=== PATIENT | female | born 1950 | race Caucasian/White ===

== ENCOUNTER 2023-03-17 05:31 | Inpatient (IN) | payer OTHER ==
[2023-03-17 06:25] LABS: ARTERIAL BLOOD GAS BASE EXCESS 9.9 mmol/L (-2-2); ARTERIAL BLOOD GAS PO2 94.7 mmHg (80-100); ARTERIAL BLOOD GAS pH 7.401 (7.350-7.450)
[2023-03-17 06:28] LABS: VENT MODE V-A/C; VENT RATE 20
[2023-03-17 07:58] LABS: EPI CELLS 3 /uL (0-25.1); HYALINE CASTS 6 /uL (0-3.1); URINE APPEARANCE CLOUDY; URINE BACTERIA 29 /uL (0-1359); URINE BILIRUBIN NEGATIVE (NEGATIVE); URINE COLOR DK YELLOW; URINE GLUCOSE (UA) NEGATIVE (NEGATIVE); URINE KETONE NEGATIVE (NEGATIVE); URINE LEUK ESTERASE 2+ (NEGATIVE); URINE NITRITE NEGATIVE (NEGATIVE); URINE PROTEIN 2+ (NEGATIVE); URINE WBC 813 /uL (0-25.8)
[2023-03-17 08:04] LABS: BASO % 0.1 % (0-2.0); HEMATOCRIT 26.2 % (32.4-45.2); HEMOGLOBIN 8.3 GM/dL (10.7-15.3); INR 1.18 (0.83-1.09); LYMPH % 4.9 % (8-40); MCH 30.3 pg (25.7-33.7); MCHC 31.5 g/dl (32.0-36.0); MEAN CELL VOLUME 96.2 fl (80-96); MEAN PLT VOLUME 9.8 fl (7.5-11.1); MONO % 8.8 % (3.8-10.2); NEUT % 86.2 % (42.8-82.8); PLATELET COUNT 426 10^3/uL (134-434); PROTHROMBIN TIME (PATIENT) 13.7 SEC (9.7-13.0); RBC 2.73 M/mm3 (3.60-5.2); RDW 18.8 % (11.6-15.6); WHITE BLOOD COUNT 10.7 K/mm3 (4.0-10.0)
[2023-03-17 08:07] LABS: ACTIVATED PTT 27.7 SECONDS (25.2-36.5)
[2023-03-17 08:19] LABS: POTASSIUM 4.4 mmol/L (3.5-5.1)
[2023-03-17 08:21] LABS: BLOOD UREA NITROGEN 42.2 mg/dL (7-18); CALCIUM 8.1 mg/dL (8.5-10.1)
[2023-03-17 08:22] LABS: MAGNESIUM 1.8 mg/dL (1.8-2.4)
[2023-03-17 08:24] LABS: CREATININE 0.6 mg/dL (0.55-1.3)
[2023-03-17 08:25] LABS: PHOSPHOROUS 2.4 mg/dL (2.5-4.9)
[2023-03-17 08:26] LABS: TOT PROT 7.2 g/dl (6.4-8.2)
[2023-03-17 08:31] LABS: BILIRUBIN,TOTAL 0.4 mg/dL (0.2-1)
[2023-03-17 08:36] LABS: URINE CRYSTALS NEGATIVE /hpf; URINE RBC 7100.9 /uL (0-23.9); YEAST NEGATIVE (NEGATIVE)
[2023-03-17 08:42] LABS: ALBUMIN 1.6 g/dl (3.4-5.0); N-TERMINAL BNP 57428.8 pg/ml (5-125)
[2023-03-17] MEDS ORDERED: FUROSEMIDE 100 MG/10 ML INJECTABLE VIAL IVPB ONE (08:48)
[2023-03-17] MEDS ORDERED: FUROSEMIDE 40 MG/4 ML INJECTABLE VIAL ONE ×2 (09:23→14:35)
[2023-03-17] MEDS ORDERED: ACETAMINOPHEN 1000 MG/100 ML BAG IVPB ONE (13:27)
[2023-03-17] MEDS ORDERED: ACETAMINOPHEN INJECTION 100 ML IVPB ONE (13:40)
[2023-03-17] MEDS: FUROSEMIDE 40 MG/4 ML INJECTABLE VIAL IVPUSH SCH (14:34)
[2023-03-17] MEDS ORDERED: ABATACEPT SQ SCH (17:30)
[2023-03-17] MEDS ORDERED: [UNRECOGNIZED DRUG - OTHER] SQ SCH (17:30)
[2023-03-17] MEDS ORDERED: METOPROLOL TARTRATE 25 MG TABLET (FP) ONE (21:38)
[2023-03-17] MEDS ORDERED: GABAPENTIN 300 MG CAPSULE ONE (21:39)
[2023-03-17] MEDS ORDERED: ASPIRIN 325 MG ENTERIC COATED TABLET (FP) ONE (21:39)
[2023-03-17] MEDS ORDERED: ENOXAPARIN NA (PORCINE) 40 MG/0.4 ML DISP.SYRIN SQ SCH (22:00)
[2023-03-17] MEDS ORDERED: GABAPENTIN 300 MG CAPSULE PO SCH (22:00)
[2023-03-17] MEDS ORDERED: ASPIRIN 325 MG ENTERIC COATED TABLET (FP) PO SCH (22:00)
[2023-03-17] MEDS ORDERED: ASPIRIN 325 MG TABLET GT ONE (22:18)
[2023-03-17] MEDS ORDERED: ASPIRIN 325 MG TABLET ONE (22:32)
[2023-03-17] MEDS: METOPROLOL TARTRATE 25 MG TABLET (FP) NGT SCH (22:54)
[2023-03-18] MEDS: FUROSEMIDE 40 MG/4 ML INJECTABLE VIAL IVPUSH SCH ×2 (05:54→13:13)
[2023-03-18 07:49] LABS: EOS % 0.1 % (0-4.5); HEMATOCRIT 26.3 % (32.4-45.2); HEMOGLOBIN 8.2 GM/dL (10.7-15.3); LYMPH % 7.5 % (8-40); MCHC 31.3 g/dl (32.0-36.0); MEAN CELL VOLUME 95.9 fl (80-96); MEAN PLT VOLUME 9.9 fl (7.5-11.1); MONO % 7.7 % (3.8-10.2); NEUT % 84.7 % (42.8-82.8); PLATELET COUNT 455 10^3/uL (134-434); RBC 2.74 M/mm3 (3.60-5.2); WHITE BLOOD COUNT 12.6 K/mm3 (4.0-10.0)
[2023-03-18 07:58] LABS: POTASSIUM 4.1 mmol/L (3.5-5.1)
[2023-03-18 08:01] LABS: CALCIUM 7.8 mg/dL (8.5-10.1)
[2023-03-18 08:02] LABS: ALBUMIN 1.6 g/dl (3.4-5.0); BLOOD UREA NITROGEN 39.5 mg/dL (7-18)
[2023-03-18 08:05] LABS: CREATININE 0.5 mg/dL (0.55-1.3)
[2023-03-18 08:07] LABS: BILIRUBIN,TOTAL 0.6 mg/dL (0.2-1); TOT PROT 6.8 g/dl (6.4-8.2)
[2023-03-18] MEDS ORDERED: PANTOPRAZOLE 40 MG TABLET PO SCH (10:00)
[2023-03-18] MEDS: METOPROLOL TARTRATE 25 MG TABLET (FP) NGT SCH ×2 (10:06→21:15)
[2023-03-18] MEDS: ASPIRIN 325 MG TABLET NGT SCH (10:07)
[2023-03-18] MEDS: AMIODARONE HCL 200 MG TABLET NGT SCH (10:07)
[2023-03-18] MEDS: FAMOTIDINE 20 MG TABLET NGT SCH ×2 (10:07→21:15)
[2023-03-18] MEDS: GABAPENTIN 250 MG/5 ML ORAL SOLUTION, 470 ML BOTTLE NGT SCH ×2 (10:08→21:52)
[2023-03-18] MEDS: ENOXAPARIN NA (PORCINE) 40 MG/0.4 ML DISP.SYRIN SQ SCH (10:08)
[2023-03-18] MEDS ORDERED: PNEUMOC 20-VAL CONJ-DIP CRM/PF 0.5 ML SYRINGE IM ONE (10:45)
[2023-03-18] MEDS ORDERED: ACETAMINOPHEN 325 MG TABLET (FP) PO PRN (16:27)
[2023-03-18] MEDS: COLLAGENASE CLOSTRIDIUM HIST. 30 GRAMS TUBE TP SCH (17:19)
[2023-03-18] MEDS: MELATONIN 1 MG TABLET NGT SCH (21:15)
[2023-03-18] MEDS: ASCORBIC ACID 500 MG/5 ML UNIT DOSE CUP GT SCH (21:18)
[2023-03-19] MEDS: FUROSEMIDE 40 MG/4 ML INJECTABLE VIAL IVPUSH SCH ×2 (06:21→14:17)
[2023-03-19] MEDS: ENOXAPARIN NA (PORCINE) 40 MG/0.4 ML DISP.SYRIN SQ SCH (09:41)
[2023-03-19] MEDS: ASCORBIC ACID 500 MG/5 ML UNIT DOSE CUP GT SCH ×2 (09:42→21:11)
[2023-03-19] MEDS: GABAPENTIN 250 MG/5 ML ORAL SOLUTION, 470 ML BOTTLE NGT SCH ×2 (09:43→21:12)
[2023-03-19] MEDS: FAMOTIDINE 20 MG TABLET NGT SCH (09:43)
[2023-03-19] MEDS: ASPIRIN 325 MG TABLET NGT SCH (09:43)
[2023-03-19] MEDS: AMIODARONE HCL 200 MG TABLET NGT SCH (09:44)
[2023-03-19] MEDS: METOPROLOL TARTRATE 25 MG TABLET (FP) NGT SCH ×2 (09:44→23:04)
[2023-03-19] MEDS: COLLAGENASE CLOSTRIDIUM HIST. 30 GRAMS TUBE TP SCH (09:44)
[2023-03-19] MEDS: ALBUTEROL SO4 2.5/IPRATROPIUM 0.5 INH SOL 3 ML VIAL.NEB. NEB SCH ×3 (11:45→19:44)
[2023-03-19] MEDS: ALBUMIN HUMAN 25% 100 ML VIAL IV SCH ×2 (12:13→14:07)
[2023-03-19] MEDS ORDERED: ACETAMINOPHEN 650 MG/20.3 ML ORAL SOLUTION (CUPS) GT PRN (13:11)
[2023-03-19 14:24] LABS: ARTERIAL BLD GAS O2 SATURATION 98.6 % (95-98); ARTERIAL BLOOD GAS pH 7.413 (7.350-7.450)
[2023-03-19 14:25] LABS: ALLENS TEST POSITIVE
[2023-03-19 14:26] LABS: VENT MODE A/C; VENT RATE 14
[2023-03-19] MEDS: AMINO ACIDS/PROTEIN HYDROLYS 30 ML LIQUID.PKT GT SCH (16:45)
[2023-03-19] MEDS: VANCOMYCIN 250 MG/5 ML ORAL SOLUTION PO SCH ×2 (17:42)
[2023-03-19 18:11] LABS: BASO % 0.2 % (0-2.0); HEMATOCRIT 26.5 % (32.4-45.2); HEMOGLOBIN 8.1 GM/dL (10.7-15.3); LYMPH % 2.6 % (8-40); MCH 30.2 pg (25.7-33.7); MCHC 30.5 g/dl (32.0-36.0); MEAN CELL VOLUME 98.9 fl (80-96); MEAN PLT VOLUME 10.4 fl (7.5-11.1); MONO % 5.8 % (3.8-10.2); NEUT % 91.4 % (42.8-82.8); PLATELET COUNT 376 10^3/uL (134-434); RBC 2.68 M/mm3 (3.60-5.2); RDW 19.2 % (11.6-15.6); WHITE BLOOD COUNT 18.9 K/mm3 (4.0-10.0)
[2023-03-19 18:28] LABS: CHLORIDE 113 mmol/L (98-107); SODIUM 157 mmol/L (136-145)
[2023-03-19 18:30] LABS: CALCIUM 7.4 mg/dL (8.5-10.1)
[2023-03-19 18:31] LABS: ALBUMIN 1.5 g/dl (3.4-5.0); BLOOD UREA NITROGEN 33.4 mg/dL (7-18); CO2 40 mmol/L (21-32); GLUCOSE,RANDOM 145 mg/dL (74-106); MAGNESIUM 1.4 mg/dL (1.8-2.4)
[2023-03-19 18:33] LABS: SGPT/ALT 20 U/L (13-61)
[2023-03-19 18:34] LABS: CREATININE 0.5 mg/dL (0.55-1.3); PHOSPHOROUS 3.5 mg/dL (2.5-4.9); SGOT/AST 17 U/L (15-37)
[2023-03-19 18:35] LABS: BILIRUBIN,TOTAL 0.4 mg/dL (0.2-1)
[2023-03-19 18:55] LABS: ALK PHOS 255 U/L (45-117); ANION GAP 3 MMOL/L (8-16); POTASSIUM 2.9 mmol/L (3.5-5.1)
[2023-03-19] MEDS ORDERED: MAGNESIUM 2GM/50ML STERILE WATER IVPB IVPB ONE (19:31)
[2023-03-19] MEDS: KCL 10 MEQ IVPB 10 MEQ/100 ML INFUS.BAG IVPB SCH ×3 (20:20→23:03)
[2023-03-19] MEDS ORDERED: FAMOTIDINE 40 MG/5 ML ORAL SUSPENSION NGT SCH (22:00)
[2023-03-19] MEDS: MELATONIN 1 MG TABLET NGT SCH (23:04)
[2023-03-20] MEDS: VANCOMYCIN 250 MG/5 ML ORAL SOLUTION PO SCH ×5 (00:05→22:59)
[2023-03-20] MEDS ORDERED: LACTATED RINGERS SOLUTION 1000 ML INFUS.BAG IV ONE ×2 (00:38→06:34)
[2023-03-20] MEDS ORDERED: VANCOMYCIN 1 GM PREMIX - 1 GM/200 ML BAG IVPB ONE (03:45)
[2023-03-20] MEDS ORDERED: PIPERACILLIN/TAZOB 4.5 GM 4.5 GM in DEXTROSE 5%-WATER 100 ML IVPB ONE (03:45)
[2023-03-20] MEDS: FUROSEMIDE 40 MG/4 ML INJECTABLE VIAL IVPUSH SCH (06:40)
[2023-03-20 06:48] LABS: HEMATOCRIT 27.6 % (32.4-45.2); MCH 29.5 pg (25.7-33.7); MCHC 29.2 g/dl (32.0-36.0); MEAN CELL VOLUME 101.3 fl (80-96); MEAN PLT VOLUME 10.7 fl (7.5-11.1); PLATELET COUNT 313 10^3/uL (134-434); RBC 2.72 M/mm3 (3.60-5.2); RDW 20.5 % (11.6-15.6); WHITE BLOOD COUNT 20.9 K/mm3 (4.0-10.0)
[2023-03-20 07:07] LABS: POTASSIUM 3.2 mmol/L (3.5-5.1)
[2023-03-20 07:10] LABS: ALBUMIN 1.4 g/dl (3.4-5.0); BLOOD UREA NITROGEN 34.6 mg/dL (7-18); CALCIUM 7.5 mg/dL (8.5-10.1); MAGNESIUM 1.8 mg/dL (1.8-2.4)
[2023-03-20 07:13] LABS: CREATININE 0.6 mg/dL (0.55-1.3); PHOSPHOROUS 3.1 mg/dL (2.5-4.9)
[2023-03-20 07:15] LABS: BILIRUBIN,TOTAL 0.4 mg/dL (0.2-1)
[2023-03-20] MEDS ORDERED: NOREPINEPHRINE BITARTRATE 4,000 MCG in DEXTROSE 5%-WATER - 496 ML IV SCH (07:45)
[2023-03-20] MEDS ORDERED: ACETAMINOPHEN 650 MG/20.3 ML ORAL SOLUTION (CUPS) GT PRN (07:57)
[2023-03-20] MEDS: ALBUTEROL SO4 2.5/IPRATROPIUM 0.5 INH SOL 3 ML VIAL.NEB. NEB SCH ×4 (08:28→20:27)
[2023-03-20] MEDS ORDERED: ALBUMIN HUMAN 25% 100 ML VIAL IV ONE (08:30)
[2023-03-20] MEDS: NOREPINEPHRINE BITARTRATE/D5W 8 MG/250 ML BAG IVPB SCH (08:36)
[2023-03-20 09:01] LABS: ANISOCYTOSIS 2+; MACROCYTOSIS 2+
[2023-03-20] MEDS: AMINO ACIDS/PROTEIN HYDROLYS 30 ML LIQUID.PKT GT SCH ×2 (09:06→17:12)
[2023-03-20] MEDS: KCL 10 MEQ IVPB 10 MEQ/100 ML INFUS.BAG IVPB SCH ×5 (09:06→15:56)
[2023-03-20] MEDS: ASPIRIN 325 MG TABLET NGT SCH (09:07)
[2023-03-20] MEDS: ENOXAPARIN NA (PORCINE) 40 MG/0.4 ML DISP.SYRIN SQ SCH (09:07)
[2023-03-20] MEDS: ASCORBIC ACID 500 MG/5 ML UNIT DOSE CUP GT SCH ×2 (09:07→21:40)
[2023-03-20] MEDS: AMIODARONE HCL 200 MG TABLET NGT SCH (09:07)
[2023-03-20] MEDS: GABAPENTIN 250 MG/5 ML ORAL SOLUTION, 470 ML BOTTLE NGT SCH ×2 (09:18→21:40)
[2023-03-20] MEDS ORDERED: CEFEPIME HCL 2 GM VIAL (RESTRICTED TO ID) IVPB SCH (10:00)
[2023-03-20] MEDS ORDERED: CEFEPIME 2 GM in DEXTROSE 5%-WATER 100 ML IVPB SCH (10:00)
[2023-03-20] MEDS: CLOTRIMAZOLE 1% CREAM TP SCH ×2 (12:15→21:40)
[2023-03-20] MEDS ORDERED: POTASSIUM CHLORIDE ORAL LIQUID 20 MEQ/15 ML PO ONE (13:30)
[2023-03-20] MEDS ORDERED: FUROSEMIDE 40 MG/4 ML INJECTABLE VIAL IVPUSH SCH (14:00)
[2023-03-20] MEDS ORDERED: VANCOMYCIN 1,000 MG in DEXTROSE 5%-WATER - 250 ML IVPB SCH (14:00)
[2023-03-20] MEDS: PIPERACILLIN/TAZOB 3.375 GM 3.375 GM in DEXTROSE 5%-WATER - 50 ML IVPB SCH ×2 (14:06→21:29)
[2023-03-20] MEDS: VANCOMYCIN/WATER FOR INJ (PEG) 1,000 MG/200 ML BAG IVPB SCH (17:13)
[2023-03-20 18:36] LABS: ARTERIAL BLD GAS O2 SATURATION 75.6 % (95-98); ARTERIAL BLOOD GAS BASE EXCESS 7.6 mmol/L (-2-2); ARTERIAL BLOOD GAS PO2 52.1 mmHg (80-100)
[2023-03-20 18:47] LABS: VENT MODE A/C; VENT RATE 14
[2023-03-20] MEDS ORDERED: FUROSEMIDE INJECTION 100 MG in SODIUM CHLORIDE 90 ML IVPB SCH (20:30)
[2023-03-20 20:43] LABS: HEMATOCRIT 23.8 % (32.4-45.2); HEMOGLOBIN 7.1 GM/dL (10.7-15.3); MCH 30.5 pg (25.7-33.7); MEAN CELL VOLUME 101.7 fl (80-96); MEAN PLT VOLUME 10.5 fl (7.5-11.1); PLATELET COUNT 299 10^3/uL (134-434); RBC 2.34 M/mm3 (3.60-5.2); RDW 21.1 % (11.6-15.6)
[2023-03-20] MEDS: MELATONIN 1 MG TABLET NGT SCH (21:30)
[2023-03-21] MEDS: NOREPINEPHRINE BITARTRATE/D5W 8 MG/250 ML BAG IVPB SCH ×2 (02:00→14:11)
[2023-03-21] MEDS: PIPERACILLIN/TAZOB 3.375 GM 3.375 GM in DEXTROSE 5%-WATER - 50 ML IVPB SCH ×4 (03:10→21:55)
[2023-03-21] MEDS: VANCOMYCIN/WATER FOR INJ (PEG) 1,000 MG/200 ML BAG IVPB SCH (04:14)
[2023-03-21] MEDS ORDERED: DOPAMINE 400 MG/D5W - 400,000 MCG/250 ML INFUS.BAG IVPB SCH (06:15)
[2023-03-21] MEDS: VANCOMYCIN 250 MG/5 ML ORAL SOLUTION PO SCH ×3 (06:26→18:55)
[2023-03-21 06:36] LABS: ARTERIAL BLD GAS O2 SATURATION 95.7 % (95-98); ARTERIAL BLOOD GAS BASE EXCESS 5.7 mmol/L (-2-2); ARTERIAL BLOOD GAS PO2 100.2 mmHg (80-100)
[2023-03-21 07:08] LABS: HEMATOCRIT 22.5 % (32.4-45.2); MCH 30.2 pg (25.7-33.7); MCHC 29.6 g/dl (32.0-36.0); MEAN CELL VOLUME 102.2 fl (80-96); MEAN PLT VOLUME 10.4 fl (7.5-11.1); PLATELET COUNT 269 10^3/uL (134-434); RDW 20.7 % (11.6-15.6); WHITE BLOOD COUNT 22.4 K/mm3 (4.0-10.0)
[2023-03-21 07:17] LABS: HEMOGLOBIN 6.7 GM/dL (10.7-15.3)
[2023-03-21 07:21] LABS: POTASSIUM 3.6 mmol/L (3.5-5.1)
[2023-03-21 07:34] LABS: ALBUMIN 1.6 g/dl (3.4-5.0); BILIRUBIN,TOTAL 0.6 mg/dL (0.2-1); BLOOD UREA NITROGEN 42.1 mg/dL (7-18); CALCIUM 7.5 mg/dL (8.5-10.1); CREATININE 0.9 mg/dL (0.55-1.3); MAGNESIUM 1.6 mg/dL (1.8-2.4); PHOSPHOROUS 3.2 mg/dL (2.5-4.9); TOT PROT 5.6 g/dl (6.4-8.2)
[2023-03-21 07:55] LABS: ARTERIAL BLOOD GAS pH 7.199 (7.350-7.450)
[2023-03-21] MEDS: ALBUTEROL SO4 2.5/IPRATROPIUM 0.5 INH SOL 3 ML VIAL.NEB. NEB SCH ×4 (08:21→20:25)
[2023-03-21] MEDS ORDERED: POTASSIUM CHLORIDE ORAL LIQUID 20 MEQ/15 ML PO ONE (08:45)
[2023-03-21 09:06] LABS: ANISOCYTOSIS 2+; MACROCYTOSIS 1+
[2023-03-21] MEDS: ENOXAPARIN NA (PORCINE) 40 MG/0.4 ML DISP.SYRIN SQ SCH (09:20)
[2023-03-21] MEDS: PANTOPRAZOLE SODIUM 40 MG VIAL IVPUSH SCH (09:20)
[2023-03-21] MEDS: AMINO ACIDS/PROTEIN HYDROLYS 30 ML LIQUID.PKT GT SCH ×2 (09:20→18:55)
[2023-03-21] MEDS: ASPIRIN 325 MG TABLET NGT SCH (09:21)
[2023-03-21] MEDS: ASCORBIC ACID 500 MG/5 ML UNIT DOSE CUP GT SCH ×2 (09:21→21:59)
[2023-03-21] MEDS: AMIODARONE HCL 200 MG TABLET NGT SCH (09:21)
[2023-03-21] MEDS: GABAPENTIN 250 MG/5 ML ORAL SOLUTION, 470 ML BOTTLE NGT SCH ×2 (09:52→21:59)
[2023-03-21] MEDS ORDERED: MAGNESIUM 2GM/50ML STERILE WATER IVPB IVPB ONE (10:00)
[2023-03-21] MEDS ORDERED: CALCIUM GLUCONATE IN NACL 1 GM/50 ML BAG IVPB ONE ×2 (11:30→13:30)
[2023-03-21 13:42] LABS: ARTERIAL BLD GAS O2 SATURATION 97.9 % (95-98); ARTERIAL BLOOD GAS BASE EXCESS 3.1 mmol/L (-2-2); ARTERIAL BLOOD GAS PO2 131.5 mmHg (80-100); ARTERIAL BLOOD GAS pH 7.229 (7.350-7.450)
[2023-03-21 13:48] LABS: VENT MODE A/C
[2023-03-21 13:49] LABS: VENT RATE 26
[2023-03-21] MEDS: CLOTRIMAZOLE 1% CREAM TP SCH ×2 (14:09→22:19)
[2023-03-21] MEDS ORDERED: PIPERACILLIN/TAZOBACTAM 3.375 GM VIAL IVPB ONE (21:28)
[2023-03-21] MEDS ORDERED: PIPERACILLIN/TAZOB 3.375 GM 3.375 GM in DEXTROSE 5%-WATER - 50 ML IVPB SCH (21:30)
[2023-03-21] MEDS: MELATONIN 1 MG TABLET NGT SCH (22:20)
[2023-03-22] MEDS: VANCOMYCIN 250 MG/5 ML ORAL SOLUTION PO SCH ×5 (00:53→23:32)
[2023-03-22] MEDS: NOREPINEPHRINE BITARTRATE/D5W 8 MG/250 ML BAG IVPB SCH ×4 (01:23→23:32)
[2023-03-22] MEDS: PIPERACILLIN/TAZOB 3.375 GM 3.375 GM in DEXTROSE 5%-WATER - 50 ML IVPB SCH ×4 (04:00→21:04)
[2023-03-22] MEDS ORDERED: PIPERACILLIN/TAZOBACTAM 3.375 GM VIAL IVPB ONE (04:26)
[2023-03-22 07:04] LABS: HEMATOCRIT 28.7 % (32.4-45.2); HEMOGLOBIN 8.7 GM/dL (10.7-15.3); MCH 29.6 pg (25.7-33.7); MCHC 30.3 g/dl (32.0-36.0); MEAN CELL VOLUME 97.8 fl (80-96); MEAN PLT VOLUME 10.8 fl (7.5-11.1); PLATELET COUNT 212 10^3/uL (134-434); RBC 2.93 M/mm3 (3.60-5.2); RDW 21.1 % (11.6-15.6); WHITE BLOOD COUNT 19.8 K/mm3 (4.0-10.0)
[2023-03-22 07:27] LABS: POTASSIUM 3.7 mmol/L (3.5-5.1)
[2023-03-22 07:30] LABS: ALBUMIN 1.4 g/dl (3.4-5.0); BLOOD UREA NITROGEN 54.4 mg/dL (7-18); CALCIUM 7.8 mg/dL (8.5-10.1); MAGNESIUM 2.2 mg/dL (1.8-2.4)
[2023-03-22 07:33] LABS: CREATININE 1.4 mg/dL (0.55-1.3); PHOSPHOROUS 4.1 mg/dL (2.5-4.9)
[2023-03-22 07:35] LABS: BILIRUBIN,TOTAL 0.6 mg/dL (0.2-1); TOT PROT 5.7 g/dl (6.4-8.2)
[2023-03-22] MEDS: ALBUTEROL SO4 2.5/IPRATROPIUM 0.5 INH SOL 3 ML VIAL.NEB. NEB SCH ×4 (08:15→20:18)
[2023-03-22] MEDS: AMINO ACIDS/PROTEIN HYDROLYS 30 ML LIQUID.PKT GT SCH ×2 (08:26→17:00)
[2023-03-22] MEDS: ENOXAPARIN NA (PORCINE) 40 MG/0.4 ML DISP.SYRIN SQ SCH (09:42)
[2023-03-22] MEDS: ASCORBIC ACID 500 MG/5 ML UNIT DOSE CUP GT SCH ×2 (09:43→21:04)
[2023-03-22] MEDS: AMIODARONE HCL 200 MG TABLET NGT SCH (09:43)
[2023-03-22] MEDS: ASPIRIN 325 MG TABLET NGT SCH (09:43)
[2023-03-22] MEDS: PANTOPRAZOLE SODIUM 40 MG VIAL IVPUSH SCH (09:43)
[2023-03-22] MEDS: GABAPENTIN 250 MG/5 ML ORAL SOLUTION, 470 ML BOTTLE NGT SCH ×2 (09:43→21:04)
[2023-03-22] MEDS: CLOTRIMAZOLE 1% CREAM TP SCH ×2 (09:45→21:05)
[2023-03-22 09:52] LABS: ANISOCYTOSIS 2+; MACROCYTOSIS 0; OVALOCYTE 2+
[2023-03-22] MEDS ORDERED: VANCOMYCIN/WATER FOR INJ (PEG) 1,000 MG/200 ML BAG IVPB SCH (10:00)
[2023-03-22 11:53] LABS: ARTERIAL BLD GAS O2 SATURATION 91.9 % (95-98); ARTERIAL BLOOD GAS BASE EXCESS 2.3 mmol/L (-2-2); ARTERIAL BLOOD GAS PO2 88.6 mmHg (80-100)
[2023-03-22 11:54] LABS: VENT MODE A/C
[2023-03-22 11:55] LABS: VENT RATE 26
[2023-03-22 12:00] LABS: ARTERIAL BLOOD GAS pH 7.089 (7.350-7.450)
[2023-03-22 16:41] VITALS: BMI 22.1
[2023-03-22 17:20] LABS: ARTERIAL BLD GAS O2 SATURATION 98.5 % (95-98); ARTERIAL BLOOD GAS BASE EXCESS 2.9 mmol/L (-2-2); ARTERIAL BLOOD GAS PO2 137.7 mmHg (80-100); ARTERIAL BLOOD GAS pH 7.336 (7.350-7.450)
[2023-03-22 17:31] LABS: ALLENS TEST POSITIVE; VENT MODE V-AC; VENT RATE 18
[2023-03-22] MEDS: MELATONIN 1 MG TABLET NGT SCH (21:05)
[2023-03-23] MEDS: PIPERACILLIN/TAZOB 3.375 GM 3.375 GM in DEXTROSE 5%-WATER - 50 ML IVPB SCH ×2 (02:45→12:44)
[2023-03-23 07:17] LABS: HEMOGLOBIN 7.7 GM/dL (10.7-15.3); MCH 29.3 pg (25.7-33.7); MCHC 30.8 g/dl (32.0-36.0); MEAN CELL VOLUME 95.1 fl (80-96); MEAN PLT VOLUME 11.2 fl (7.5-11.1); PLATELET COUNT 165 10^3/uL (134-434); RBC 2.63 M/mm3 (3.60-5.2); RDW 20.5 % (11.6-15.6); WHITE BLOOD COUNT 16.8 K/mm3 (4.0-10.0)
[2023-03-23 07:42] LABS: POTASSIUM 3.4 mmol/L (3.5-5.1)
[2023-03-23 07:44] LABS: ALBUMIN 1.3 g/dl (3.4-5.0); CALCIUM 7.6 mg/dL (8.5-10.1); MAGNESIUM 2.2 mg/dL (1.8-2.4)
[2023-03-23 07:47] LABS: PHOSPHOROUS 4.1 mg/dL (2.5-4.9)
[2023-03-23 07:48] LABS: CREATININE 1.8 mg/dL (0.55-1.3)
[2023-03-23 07:49] LABS: BILIRUBIN,TOTAL 0.5 mg/dL (0.2-1); TOT PROT 5.4 g/dl (6.4-8.2)
[2023-03-23] MEDS: ALBUTEROL SO4 2.5/IPRATROPIUM 0.5 INH SOL 3 ML VIAL.NEB. NEB SCH ×4 (08:14→20:09)
[2023-03-23 09:37] LABS: ANISOCYTOSIS 3+; MACROCYTOSIS 2+; TARGET CELLS 2+
[2023-03-23] MEDS: AMIODARONE HCL 200 MG TABLET NGT SCH (10:44)
[2023-03-23] MEDS: ASCORBIC ACID 500 MG/5 ML UNIT DOSE CUP GT SCH ×2 (10:44→21:24)
[2023-03-23] MEDS: PANTOPRAZOLE SODIUM 40 MG VIAL IVPUSH SCH (10:44)
[2023-03-23] MEDS: AMINO ACIDS/PROTEIN HYDROLYS 30 ML LIQUID.PKT GT SCH ×2 (10:44→19:10)
[2023-03-23] MEDS: PIPERACILLIN/TAZOB 2.25 GM 2.25 GM in DEXTROSE 5%-WATER - 50 ML IVPB SCH ×3 (10:44→21:24)
[2023-03-23] MEDS: ASPIRIN 325 MG TABLET NGT SCH (10:44)
[2023-03-23] MEDS: ENOXAPARIN NA (PORCINE) 40 MG/0.4 ML DISP.SYRIN SQ SCH (10:47)
[2023-03-23] MEDS: GABAPENTIN 250 MG/5 ML ORAL SOLUTION, 470 ML BOTTLE NGT SCH ×2 (10:52→21:24)
[2023-03-23] MEDS: NOREPINEPHRINE BITARTRATE/D5W 8 MG/250 ML BAG IVPB SCH (12:43)
[2023-03-23] MEDS: VANCOMYCIN 250 MG/5 ML ORAL SOLUTION PO SCH ×4 (12:44→23:15)
[2023-03-23] MEDS: CLOTRIMAZOLE 1% CREAM TP SCH ×2 (15:45→21:26)
[2023-03-23 21:09] LABS: ARTERIAL BLD GAS O2 SATURATION 98.6 % (95-98); ARTERIAL BLOOD GAS PO2 145.4 mmHg (80-100); ARTERIAL BLOOD GAS pH 7.298 (7.350-7.450)
[2023-03-23] MEDS: MELATONIN 1 MG TABLET NGT SCH (21:24)
[2023-03-24] MEDS: NOREPINEPHRINE BITARTRATE/D5W 8 MG/250 ML BAG IVPB SCH ×3 (01:20→23:04)
[2023-03-24] MEDS: PIPERACILLIN/TAZOB 2.25 GM 2.25 GM in DEXTROSE 5%-WATER - 50 ML IVPB SCH ×4 (02:52→20:15)
[2023-03-24] MEDS: VASOPRESSIN 40 UNITS/100 ML BAG IV SCH (02:53)
[2023-03-24] MEDS: VANCOMYCIN 250 MG/5 ML ORAL SOLUTION PO SCH ×4 (05:54→23:05)
[2023-03-24 06:38] LABS: ARTERIAL BLD GAS O2 SATURATION 78.6 % (95-98); ARTERIAL BLOOD GAS BASE EXCESS -1.6 mmol/L (-2-2); ARTERIAL BLOOD GAS PO2 53.7 mmHg (80-100)
[2023-03-24 06:43] LABS: ARTERIAL BLOOD GAS pH 7.189 (7.350-7.450)
[2023-03-24] MEDS: ALBUTEROL SO4 2.5/IPRATROPIUM 0.5 INH SOL 3 ML VIAL.NEB. NEB SCH ×4 (07:15→19:55)
[2023-03-24 07:45] LABS: HEMATOCRIT 19.3 % (32.4-45.2); MCH 29.6 pg (25.7-33.7); MCHC 30.9 g/dl (32.0-36.0); MEAN CELL VOLUME 95.6 fl (80-96); MEAN PLT VOLUME 11.2 fl (7.5-11.1); PLATELET COUNT 143 10^3/uL (134-434); RBC 2.02 M/mm3 (3.60-5.2); WHITE BLOOD COUNT 20.4 K/mm3 (4.0-10.0)
[2023-03-24 07:52] LABS: POTASSIUM 3.9 mmol/L (3.5-5.1)
[2023-03-24 07:57] LABS: ALBUMIN 1.2 g/dl (3.4-5.0); BLOOD UREA NITROGEN 78.3 mg/dL (7-18); CALCIUM 7.5 mg/dL (8.5-10.1); MAGNESIUM 2.1 mg/dL (1.8-2.4)
[2023-03-24 08:00] LABS: CREATININE 2.2 mg/dL (0.55-1.3); PHOSPHOROUS 4.6 mg/dL (2.5-4.9)
[2023-03-24 08:01] LABS: BILIRUBIN,TOTAL 0.8 mg/dL (0.2-1)
[2023-03-24 09:06] LABS: ANISOCYTOSIS 2+; MACROCYTOSIS 0; OVALOCYTE 1+; TARGET CELLS 1+
[2023-03-24] MEDS: GABAPENTIN 250 MG/5 ML ORAL SOLUTION, 470 ML BOTTLE NGT SCH (09:30)
[2023-03-24] MEDS: ASCORBIC ACID 500 MG/5 ML UNIT DOSE CUP GT SCH (09:30)
[2023-03-24] MEDS: AMIODARONE HCL 200 MG TABLET NGT SCH (09:31)
[2023-03-24] MEDS: PANTOPRAZOLE SODIUM 40 MG VIAL IVPUSH SCH (09:31)
[2023-03-24] MEDS: ASPIRIN 325 MG TABLET NGT SCH (09:31)
[2023-03-24] MEDS: AMINO ACIDS/PROTEIN HYDROLYS 30 ML LIQUID.PKT GT SCH (09:32)
[2023-03-24] MEDS ORDERED: ABATACEPT SQ SCH (10:00)
[2023-03-24] MEDS ORDERED: MORPHINE SULFATE/0.9% NACL/PF 100 MG/100 ML BAG IVPB SCH (10:15)
[2023-03-24] MEDS: CLOTRIMAZOLE 1% CREAM TP SCH ×2 (19:07→21:04)
[2023-03-25] MEDS: PIPERACILLIN/TAZOB 2.25 GM 2.25 GM in DEXTROSE 5%-WATER - 50 ML IVPB SCH ×2 (02:05→09:27)
[2023-03-25 04:39] VITALS: TEMP 96.7
[2023-03-25] MEDS: VANCOMYCIN 250 MG/5 ML ORAL SOLUTION PO SCH (05:26)
[2023-03-25] MEDS: NOREPINEPHRINE BITARTRATE/D5W 8 MG/250 ML BAG IVPB SCH ×2 (05:27→12:27)
[2023-03-25] MEDS: VASOPRESSIN 40 UNITS/100 ML BAG IV SCH (06:27)
[2023-03-25 06:41] LABS: HEMATOCRIT 18.1 % (32.4-45.2); MCH 28.8 pg (25.7-33.7); MCHC 28.3 g/dl (32.0-36.0); MEAN CELL VOLUME 101.8 fl (80-96); MEAN PLT VOLUME 11.5 fl (7.5-11.1); PLATELET COUNT 134 10^3/uL (134-434); RBC 1.78 M/mm3 (3.60-5.2)
[2023-03-25 07:07] LABS: POTASSIUM 5.1 mmol/L (3.5-5.1)
[2023-03-25 07:10] LABS: CALCIUM 7.6 mg/dL (8.5-10.1)
[2023-03-25 07:11] LABS: BLOOD UREA NITROGEN 90.2 mg/dL (7-18); MAGNESIUM 2.4 mg/dL (1.8-2.4)
[2023-03-25 07:14] LABS: CREATININE 2.6 mg/dL (0.55-1.3); PHOSPHOROUS 8.7 mg/dL (2.5-4.9)
[2023-03-25 07:15] LABS: HEMOGLOBIN 5.1 GM/dL (10.7-15.3); WHITE BLOOD COUNT 34.7 K/mm3 (4.0-10.0)
[2023-03-25] MEDS: ALBUTEROL SO4 2.5/IPRATROPIUM 0.5 INH SOL 3 ML VIAL.NEB. NEB SCH ×2 (07:35→11:50)
[2023-03-25] MEDS: AMIODARONE HCL 200 MG TABLET NGT SCH (09:28)
[2023-03-25] MEDS: CLOTRIMAZOLE 1% CREAM TP SCH (09:32)
[2023-03-25] MEDS ORDERED: MORPHINE SULFATE/0.9% NACL/PF 100 MG/100 ML BAG IVPB SCH (10:12)
[2023-03-25] MEDS ORDERED: LORazepam 2 MG/ML SDV VIAL IVPUSH PRN (10:12)
[2023-03-25 12:36] VITALS: BP 58/29; PULSE 66; RESP 26
== END 2023-03-25 14:00 | disposition expired | DRG 207 ==
LOC: JER 05:31 → JERBED 09:54 → JICU 03-18 00:03
PROVIDERS: ADMIT Family Medicine; ATTEND Internal Medicine
PROC: 5A1955Z Respiratory Ventilation, Greater than 96 Consecutive Hours (ICD-10-PCS; principal; 2023-03-17)
PROC: 05HN33Z Insertion of Infusion Device into Left Internal Jugular Vein, Percutaneous Approach (ICD-10-PCS; 2023-03-20)
PROC: B544ZZA Ultrasonography of Left Jugular Veins, Guidance (ICD-10-PCS; 2023-03-20)
PROC: 03HY32Z Insertion of Monitoring Device into Upper Artery, Percutaneous Approach (ICD-10-PCS; 2023-03-20)
PROC: 30233N1 Transfusion of Nonautologous Red Blood Cells into Peripheral Vein, Percutaneous Approach (ICD-10-PCS; 2023-03-21)
DX: J96.22 Acute and chronic respiratory failure with hypercapnia (principal); L89.154 Pressure ulcer of sacral region, stage 4; A41.9 Sepsis, unspecified organism; I50.33 Acute on chronic diastolic (congestive) heart failure; R65.21 Severe sepsis with septic shock; A04.72 Enterocolitis due to Clostridium difficile, not specified as recurrent; E87.0 Hyperosmolality and hypernatremia; E46 Unspecified protein-calorie malnutrition; Z99.11 Dependence on respirator [ventilator] status; I11.0 Hypertensive heart disease with heart failure; Z93.0 Tracheostomy status; E87.70 Fluid overload, unspecified; Z68.22 Body mass index [BMI] 22.0-22.9, adult; D64.9 Anemia, unspecified; I27.20 Pulmonary hypertension, unspecified; I48.0 Paroxysmal atrial fibrillation; D72.829 Elevated white blood cell count, unspecified
CPT/HCPCS: 0241U-QW; 36415; 36430; 36600; 71045-TC-FY; 74018-TC-FY; 80048; 80053; 81003; 82308; 82803; 83605; 83735; 83880; 84100; 84484; 85025; 85027; 85610; 85730; 86850; 86900; 86901; 86922; 87040; 87070; 87081; 87086; 87186; 87205; 87324; 87449; 90677; 93005; 93010; 94002; 94640; 99285-25; J3490; P9058